=== PATIENT | male | born 2000 | race Caucasian/White ===

== ENCOUNTER 2023-06-09 01:10 | Day surgery (SDC) | payer OTHER, SELFPAY ==
[2023-06-01 15:01] VITALS: BMI 20.2
--- NOTE | 2023-06-01 15:07 | PC.NURSE ---
Report to the Outpatient Waiting Room, entrance under the green pavilion located off [facility], at time _0600 on date _06/10/23_. Planned Procedure Time: _0730__. Time changes happen often and if your time is changed the preop area will call you the afternoon before. - You and your visitor will be asked to self-screen and do not enter if you have any COVID symptoms. - A mask is optional within the hospital at this time. Patients may have clear liquids (water, carbonated beverages, clear teas, apple juice) until 3 hours prior to surgery with a maximum of 20 ounces. - No food from midnight until time of surgery - Infants may have breast milk until 4 hours before surgery, infant formula 6 hours prior to surgery. - Children will be allowed to drink immediately following surgery. If applicable, please bring a bottle or sippy cup to assist with drinking. Juice, water, soda, and popsicles are readily available. For infants on formula, please bring formula the day of surgery. Pacifiers are allowed. Take the following medications with a SIP of water the morning of surgery: ___NONE DO NOT STOP ANY OF YOUR OTHER PRESCRIPTION MEDICATIONS PRIOR TO SURGERY ?EXCEPT THE FOLLOWING Medications to discontinue per physician NONE Date to take last dose Please no make-up, nail ivorian, hairspray, perfume, deodorant, or body powder the day of surgery. No jewelry (including any body piercings) or valuables the day of surgery, leave them at home. Please take a shower or bath the night before, or the morning of, surgery with an antibacterial soap. Wear comfortable, loose fitting clothing. Children are encouraged to wear pajamas. - Jewelry must be removed prior to entering the operating room. Rings and piercings that are not removed may be cut off. - The hospital will not accept responsibility for valuables. - Please leave all valuables, including medications, at home the day of surgery. If you are going home after surgery, a licensed milk tanker driver must drive you home. - NO public transportation without another adult if you receive anesthesia. - We recommend that an adult stay with you for 24 hours following discharge. - We also recommend that you do not drive, make important decision, drink alcoholic beverages, or take any drugs that were not prescribed by your health care provider for at least 24 hours after your discharge time. For Pediatric surgeries, we recommend two adults accompany the child home. Follow any additional instructions given to you from your surgeon. If you or anyone in your household have experienced Covid symptoms in the past week, please notify your surgeon or the nurse liaison at the phone number below for possible testing. Telephone instructions given to PATIENT_and asked if any additional questions and then verbalized understanding. Patient advised to call surgeon office or pre surgery nurse liaison [phone] if any additional questions.
[2023-06-09 06:25] VITALS: BP 109/66; PULSE 69; RESP 16; TEMP 36.3; O2SAT 100; BMI 18.9
[2023-06-09] MEDS: LACTATED RINGERS 1,000 ML 30 ML IV CONT (06:50)
--- NOTE | 2023-06-09 07:07 | WPDHPUPDATE1 ---
History and Physical Update Update Date/Time: 06/09/23 07:07 History and Physical has been reviewed, including an updated exam of the patient. There are NO changes in the patient's condition. Risks, benefits, and alternatives have been discussed and questions answered. Patient agrees to proceed with procedure.
--- NOTE | 2023-06-09 07:11 | P.PNAN_ITS ---
Anes - Initial Pre Proc Eval Procedure: Operation Date: 06/09/23 07:30 Proposed Procedures p Excision Right Dorsal Wrist Ganglion Cyst - Kong Alexis MD Date/Time: 06/09/23 07:11 Surgeon: Kong Alexis MD Pre Op Diagnosis: right dorsal wrist ganglion cyst Patient Data Age: 23 Gender: M Height: 1.78 m Weight: 59.9 kg Last Vital Signs Temp 97.4 F L 06/09/23 06:25 Pulse 69 06/09/23 06:25 Resp 16 06/09/23 06:25 BP 109/66 06/09/23 06:25 Pulse Ox 100 06/09/23 06:25 O2 Del Method Room Air 06/09/23 06:25 Allergies Allergy/AdvReac Type Severity Reaction Status Date / Time No Known Allergies Allergy Verified 06/09/23 07:08 Home Medications Medication Instructions Recorded Confirmed Type No Home Medications 06/01/23 06/01/23 History Patient hx anesthesia problems: none Family hx anesthesia problems: none Results Review: All pre-operative results and documents have been reviewed as part of the pre- operative evaluation. [facility] Social History Social History Years smoked: 2 Tobacco type: cigarettes and e-cigarettes/vaping Additional smoking assessment comments: VAPING 1 POD IN A WEEK Alcohol intake: current Drinks per week: 12 Substance use: current Substance use type: marijuana Other substance usage details: SEVERAL TIMES PER DAY Living arrangements: with family Anes - Eval Final PreProcedure Day of Procedure 06/09/23 07:11 Patient weight: normal Heart: regular rate and rhythm Lungs: clear to auscultation Airway: Mallampati scale class II Neurological: alert and oriented Last oral intake: >/= 8 hours ASA classification: II Emergent: no Anesthetic plan: proceed Anesthesia type and monitoring: general GIVS and standard monitoring Results Review: All pre-operative results and documents have been reviewed as part of the pre- operative evaluation. Informed Consent: The patient's anesthetic plan and its attendant risks and benefits were discussed with the patient/family/POA. Questions were solicited and answers provided to the satisfaction of the patient/family/POA.
[2023-06-09] MEDS: LIDO 1%/EPINEPHRINE 1:100,000 20 ML VIAL 6 ML INFILTRATE (07:24)
[2023-06-09] MEDS: BACITRACIN OINTMENT 15 GM TUBE 1 APPLIC TOPICAL (07:47)
[2023-06-09 08:22] VITALS: BP 110/72; PULSE 64; RESP 16; O2SAT 100
--- NOTE | 2023-06-09 08:29 | P.OP_ITS ---
Procedure Note - Detailed Date of Procedure 06/09/23 Pre-op Diagnosis right dorsal wrist ganglion cyst Post-op Diagnosis Same Procedure Performed Excision right dorsal wrist ganglion cyst Surgeon Kong Alexis MD Biomedical Equipment Support Specialist [facility] Description of Procedure The mass over the right dorsal wrist was marked on the patient in the holding area with his consent. He was taken to the operating room where he was placed supine on the operating table. He was given IV sedation and the right upper extremity was prepped and draped in usual fashion. The site was marked for the incision and locally infiltrated with 1% lidocaine with epinephrine. The extremity was exsanguinated and the tourniquet inflated to 250 mmHg. The incision was made as marked and blunt dissection followed the 7 tendinous mass. The sponge the mass was identified. It was excised from the thick synovial and capsular tissue. A discrete tract to its origin was not found. The ligamentous tissue was repaired with interrupted 3-0 Ethibond suture the 3 sites it was demonstrated that this did not impede passive flexion of the wrist. The wound was closed with interrupted intradermal 3-0 Monocryl suture. The usual bandage was applied. He is discharged with instructions in wound care and follow-up and a prescription for hydrocodone 5/325 5. Estimated Blood Loss -5.0 Drains No Packing No Pathology None sent Complications No immediate complications Condition Stable Disposition Same day
[2023-06-09 08:50] VITALS: BP 108/57; PULSE 66; RESP 16; O2SAT 100
[2023-06-09 09:20] VITALS: BP 103/62; PULSE 55; RESP 16
== END 2023-06-09 09:30 | disposition home or self-care (01) ==
PROVIDERS: PCP Internal Medicine; Visit Provider Plastic Surgery
PROC: (CPT 25111; principal; 2023-06-09 07:30)
DX: M67.431 Ganglion, right wrist (principal); F17.290 Nicotine dependence, other tobacco product, uncomplicated; F12.90 Cannabis use, unspecified, uncomplicated
CPT/HCPCS: 25111; A9270; J1100; J2250; J2405; J2704; J3010; J7120